=== PATIENT | male | born 1995 | race Caucasian/White ===

== ENCOUNTER 2019-05-21 09:09 | Emergency (ER) | payer MEDICAID, SELFPAY ==
[~2019-05-21] VITALS: Ht 188 cm; Wt 159.1 kg
[2019-05-21] MEDS ORDERED: ALBUTEROL SULFATE HFA 90 MCG/PUFF 8 GM INHALER IH ONE (10:30)
[2019-05-21] MEDS ORDERED: BENZONATATE 100 MG CAPSULE PO ONE (10:30)
[2019-05-21] MEDS ORDERED: LORATADINE 10 MG TABLET PO ONE (10:30)
[2019-05-21 10:35] VITALS: BP 147/77
== END 2019-05-21 11:02 | disposition home or self-care (01) ==
LOC: EMS 09:10
DX: J30.9 Allergic rhinitis, unspecified (principal); J45.909 Unspecified asthma, uncomplicated
CPT/HCPCS: 94640; J3535

== ENCOUNTER 2021-06-03 16:53 | Emergency (ER) | payer MEDICAID ==
[~2021-06-03] VITALS: Ht 190.5 cm; Wt 200.0 kg
[2021-06-03] MEDS ORDERED: PredniSONE 20 MG TABLET PO ONE (17:30)
[2021-06-03] MEDS ORDERED: ALBUTEROL SULFATE 2.5 MG/0.5 ML NEB SOLUTION NEB ONE (17:30)
[2021-06-03 17:42] LABS: BASOPHILS % (AUTO) 0.2 % (0.0-2.0); HEMOGLOBIN 14.4 g/dL (13.5-17.5); LYMPHOCYTES # (AUTO) 1.6 K/uL (1.0-4.8); MEAN CORPUSCULAR HEMOGLOBIN 26.8 pg (26.0-34.0); MEAN CORPUSCULAR HGB CONC 33.6 G/dL (31.0-37.0); MEAN CORPUSCULAR VOLUME 80 fL (80-100); MONOCYTES # (AUTO) 0.5 K/uL (0.1-1.0); MONOCYTES % (AUTO) 6.2 % (2.0-9.0); NEUTROPHILS # (AUTO) 5.9 K/uL (1.8-7.7); NEUTROPHILS % (AUTO) 71.6 % (40.0-70.0); PLATELET COUNT (AUTO) 224 K/uL (150-450); RED BLOOD CELL COUNT(AUTO) 5.38 MIL/uL (4.50-5.90); RED CELL DISTRIBUTION WIDTH 15.2 % (11.5-14.5)
[2021-06-03 17:57] LABS: ANION GAP 11 mmol/L (8-16); CALCIUM, TOTAL 8.6 mg/dL (8.8-10.5); CARBON DIOXIDE 26 mmol/L (22-29); CHLORIDE 102 mmol/L (98-107); CREATININE 1.07 mg/dL (0.60-1.30); GLOMERULAR FILTR. RATE CALC > 60 mL/min (>60); GLUCOSE,RANDOM 120 mg/dL (70-110); POTASSIUM 4.1 mmol/L (3.5-5.1); SODIUM SERUM 139 mmol/L (136-145); UREA NITROGEN, BLOOD 11 mg/dL (7-18)
[2021-06-03 18:02] LABS: ALANINE AMINOTRANSFERASE 44 U/L (12-78); ALBUMIN 3.8 g/dL (3.4-5.0); ALKALINE PHOSPHATASE 101 U/L (46-116); ASPARTATE AMINOTRANSFERASE 18 U/L (15-37); BILIRUBIN,TOTAL 0.4 mg/dL (0.1-1.0); TOTAL PROTEIN, SERUM 8.3 g/dL (6.4-8.2)
[2021-06-03] MEDS ORDERED: ALBU8HFA IH (18:30)
[2021-06-03] MEDS ORDERED: PRED-554 PO (18:31)
[2021-06-03] MEDS ORDERED: 0.9% SODIUM CHLORIDE 5 ML NEB SOLUTION NEB ONE (18:32)
[2021-06-03 19:33] VITALS: BP 141/97
== END 2021-06-03 19:50 | disposition home or self-care (01) ==
LOC: EMS 16:55
DX: J45.909 Unspecified asthma, uncomplicated (principal)
CPT/HCPCS: 36415; 71046; 80053; 85025; 93005; 94640; 99285; J7512; J7613